=== PATIENT | female | born 1965 | race Caucasian/White ===

== ENCOUNTER 2018-10-10 18:34 | Emergency (ER) | payer BC ==
[2018-10-10] MEDS ORDERED: LIDOCAINE 1% MPF 5 ML VIAL ONE (18:55)
[2018-10-10] MEDS ORDERED: TETANUS & DIPHTHERIA TOX,ADULT 0.5 ML VIAL ONE (18:56)
--- NOTE | 2018-10-10 20:50 | ER ---
Nurse's Notes [facility] Name: Dinah Chino Age: 53 yrs Sex: Female : 1965 Arrival Date: 10/10/2018 Time: 18:35 Bed 24 Private MD: Diagnosis: Bitten by dog;Laceration without foreign body of foot Presentation: 10/10 18:52 Presenting complaint: Patient states: laceration to R foot sustained by dog bite 1 hour ss ago. Transition of care: patient was not received from another setting of care. Onset of symptoms was October 10, 2018. Risk Assessment: Do you want to hurt yourself or someone else? Patient reports no desire to harm self or others. Initial Sepsis Screen: Does the patient meet any 2 criteria? No. Patient's initial sepsis screen is negative. Does the patient have a suspected source of infection? No. Patient's initial sepsis screen is negative. Care prior to arrival: None. 18:52 Method Of Arrival: Wheelchair 18:52 Acuity: ERIC 4 ss Triage Assessment: 19:13 Bite description: bite sustained to right foot is from animal, was sustained 30-60 mg2 minutes ago. by a dog, animal information: vaccination(s). General: Appears in no apparent distress. comfortable, Behavior is calm, cooperative. Pain: Complains of pain in right foot. 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 - Social history:: Smoking status: Patient/guardian denies using tobacco. - Ebola Screening: : Patient denies exposure to infectious person Patient denies travel to an Ebola-affected area in the 21 days before illness onset. Screenin:12 Abuse screen: Denies threats or abuse. Denies injuries from another. Nutritional mg2 screening: No deficits noted. Tuberculosis screening: No symptoms or risk factors identified. Fall Risk None identified. Assessment: 18:53 Reassessment: [facility] dispatch notified of dog bite and location and states ss that they will have someone attempt to look for dog. Patient reports that dog was a stray. 19:36 Derm: Skin laceration present Skin is pink, warm \T\ dry. normal. mg2 Vital Signs: 18:53 BP 114 / 66; Pulse 68; Resp 16; Pulse Ox 97% on R/A; Weight 52.16 kg; Pain 10/10; ss 19:35 BP 120 / 78; Pulse 70; Resp 18; Temp 98; Pulse Ox 100% on R/A; Pain 2/10; mg2 ED Course: 18:35 Patient arrived in ED. as 18:42 Terrance Arzola PA is PHCP. jr 18:43 Lux Simon MD is Attending Physician. jr8 18:52 Triage completed. ss 18:53 Arm band placed on right wrist. ss 19:05 Surinder Galvin, RN is Primary Nurse. mg2 19:12 Assist provider with laceration repair on right foot that was between 2.6 to 7.5 cm mg2 using sutures. Set up tray. Performed by JEFFRY Casper Ateema. Patient did not have IV access during this emergency room visit. 19:14 Patient has correct armband on for positive identification. Door closed. Warm blanket mg2 given. 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 Exp: mg2 05/23/2020. Lot #: [id number]. } Route: IM; Site: right deltoid; 19:11 Follow up: Response: No adverse reaction mg2 Outcome: 19:23 Discharge ordered by . [facility] 19:36 Discharged to home via wheelchair, with family. mg2 19:36 Condition: stable 19:36 Discharge instructions given to patient, family, Instructed on discharge instructions, follow up and referral plans. medication usage, Demonstrated understanding of instructions, follow-up care, medications, Prescriptions given X 1. 19:37 Patient left the ED. mg2 Signatures: Elsie Harris Shelby, RN RN Terrance Arzola PA PA jr8 Surinder Galvin, LEANNA RN mg2
--- NOTE | 2018-10-10 20:51 | EDPHYS ---
Physician Documentation [facility] Name: Dinah Chino Age: 53 yrs Sex: Female : 1965 Arrival Date: 10/10/2018 Time: 18:35 Bed 24 Private MD: ED Physician Lux Simon HPI: 10/10 18:51 This 53 yrs old Female presents to ER via Unassigned with complaints of Dog jr8 Bite. 18:51 The patient was bitten on the right foot, by a dog, in an unprovoked manner, outdoors. jr8 Onset: The symptoms/episode began/occurred acutely, today. Animal information: Patient/Caregiver unable to provide information related to the animal. The appearance of the animal is unknown is unknown, The animal is unknown and not captured. Animal control has been notified. Secondary to the bite the patient reports a laceration, that is deep, 3 cm(s). Associated signs and symptoms: The patient has no apparent associated signs or symptoms. Severity of symptoms: At their worst the symptoms were moderate, in the emergency department the symptoms are unchanged. The patient has not experienced similar symptoms in the past. The patient has not recently seen a physician. 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 - Social history:: Smoking status: Patient/guardian denies using tobacco. - Ebola Screening: : Patient denies exposure to infectious person Patient denies travel to an Ebola-affected area in the 21 days before illness onset. ROS: 18:51 Eyes: Negative for injury, pain, redness, and discharge, ENT: Negative for injury, jr8 pain, and discharge, Neck: Negative for injury, pain, and swelling, Cardiovascular: Negative for chest pain, palpitations, and edema, Respiratory: Negative for shortness of breath, cough, wheezing, and pleuritic chest pain, Abdomen/GI: Negative for abdominal pain, nausea, vomiting, diarrhea, and constipation, Back: Negative for injury and pain, MS/Extremity: Negative for injury and deformity, Neuro: Negative for headache, weakness, numbness, tingling, and seizure. 18:51 Skin: Positive for laceration(s), of the right foot. Exam: 18:51 Cardiovascular: Regular rate and rhythm with a normal S1 and S2. No gallops, murmurs, jr8 or rubs. Normal PMI, no JVD. No pulse deficits. Respiratory: Lungs have equal breath sounds bilaterally, clear to auscultation and percussion. No rales, rhonchi or wheezes noted. No increased work of breathing, no retractions or nasal flaring. MS/ Extremity: Pulses equal, no cyanosis. Neurovascular intact. Full, normal range of motion. Neuro: Awake and alert, GCS 15, oriented to person, place, time, and situation. Cranial nerves II-XII grossly intact. Motor strength 5/5 in all extremities. Sensory grossly intact. Cerebellar exam normal. Normal gait. 18:51 Skin: Patient has approximately 3 cm laceration to dorsal right foot at the MTP region. Linear with mild underlying hematoma . Vital Signs: 18:53 BP 114 / 66; Pulse 68; Resp 16; Pulse Ox 97% on R/A; Weight 52.16 kg; Pain 10/10; ss 19:35 BP 120 / 78; Pulse 70; Resp 18; Temp 98; Pulse Ox 100% on R/A; Pain 2/10; mg2 Laceration: 18:51 Wound Repair of 3cm ( 1.2in ) subcutaneous laceration to right foot. Irregularly jr8 shaped.. Minimal bleeding noted.. Distal neuro/vascular/tendon intact. Anesthesia: Local anesthetic administered with 3 mls of 1% lidocaine. Wound prep: Extensive cleansing with betadine, Wound irrigation with saline, Wound explored extensively, Copious irrigation. Skin closed with 3 4-0 Prolene using interrupted sutures and sterile technique. Patient tolerated well. MDM: 18:46 Patient medically screened. jr8 18:51 Data reviewed: vital signs, nurses notes, and as a result, I will discharge patient. jr8 Data interpreted: Pulse oximetry: on room air is 97 %. Interpretation: normal. Counseling: I had a detailed discussion with the patient and/or guardian regarding: the historical points, exam findings, and any diagnostic results supporting the discharge/admit diagnosis, the need for outpatient follow up, a family practitioner, to return to the emergency department if symptoms worsen or persist or if there are any questions or concerns that arise at home. 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 Exp: mg2 05/23/2020. Lot #: [id number]. } Route: IM; Site: right deltoid; 19:11 Follow up: Response: No adverse reaction mg2 Disposition: 10/11 07:23 Co-signature as Attending Physician, Lux Simon MD I agree with the assessment and kdr plan of care. Disposition: 10/10/18 19:23 Discharged to Home. Impression: Bitten by dog, Laceration without foreign body of foot. - Condition is Stable. - Discharge Instructions: Animal Bite. - Prescriptions for Doxycycline Monohydrate 100 mg Oral Tablet - take 1 tablet by ORAL route every 12 hours for 10 days; 20 tablet. - Work release form, Medication Reconciliation Form, Thank You Letter, Antibiotic Education, Prescription Opioid Use form. - Follow up: Private Physician; When: 7 - 10 days; Reason: Wound Recheck, Recheck today's complaints, Continuance of care, Staple/Suture removal, Re-evaluation by your physician. - Problem is new. - Symptoms have improved. Signatures: Lux Simon MD MD [facility] Shanna Doll RN RN Terrance Arzola PA PA jr8 Surinder Galvin RN RN mg2 Corrections: (The following items were deleted from the chart) 10/10 19:37 19:23 10/10/2018 19:23 Discharged to Home. Impression: Bitten by dog; Laceration mg2 without foreign body of foot. Condition is Stable. Forms are Medication Reconciliation Form, Thank You Letter, Antibiotic Education, Prescription Opioid Use. Follow up: Private Physician; When: 7 - 10 days; Reason: Wound Recheck, Recheck today's complaints, Continuance of care, Staple/Suture removal, Re-evaluation by your physician. Problem is new. Symptoms have improved. jr8
== END 2018-10-10 19:37 | disposition home or self-care (01) ==
LOC: ER 18:34
PROC: 0JQQ0ZZ Repair Right Foot Subcutaneous Tissue and Fascia, Open Approach (ICD-10-PCS; principal; 2018-10-10)
DX: S91.311A Laceration without foreign body, right foot, initial encounter (principal); W54.0XXA Bitten by dog, initial encounter; Y93.9 Activity, unspecified; Y92.9 Unspecified place or not applicable; Z88.6 Allergy status to analgesic agent; Z88.0 Allergy status to penicillin; Z91.040 Latex allergy status; Z23 Encounter for immunization
CPT/HCPCS: 90471; 90714; 99283